=== PATIENT | male | born 2000 | race Caucasian/White ===

== ENCOUNTER 2020-02-03 01:31 | Emergency (ER) | payer BC, OTHER ==
[2020-02-03 01:41] VITALS: BP 150/95; PULSE 106
[2020-02-03] MEDS: Diphtheria,Pertussis(Acell),Tetanus Vaccine 0.5 ML SDV IM ONE (01:53)
--- NOTE | 2020-02-03 01:54 | EDM.PDOC ---
ED HPI GENERAL MEDICAL PROBLEM - General Chief Complaint: General Stated Complaint: Stepped on jaspal nail Time Seen by Provider: 02/03/20 01:49 Source of Information: Reports: Patient History Limitations: Reports: No Limitations - History of Present Illness INITIAL COMMENTS - FREE TEXT/NARRATIVE: Patient is a 19-year-old gentleman who presents to the emergency department this morning via private vehicle with a complaint of puncture wound to left foot. Patient states that he accidentally stepped on a jaspal nail at 6 p.m. yesterday. Patient states that he was wearing sneakers. Patient denies any other injury. Patient is not up to date with his tetanus. Onset: Gradual Onset Date: 02/02/20 Onset Time: 18:00 Duration: Hour(s): Location: Reports: Lower Extremity, Left Quality: Reports: Ache Severity: Mild Improves with: Reports: None Worsens with: Reports: Movement Context: Reports: Trauma (Stepped on nail) Associated Symptoms: Reports: No Other Symptoms Left Foot Pain Score (Numeric/FACES): 9 - Related Data Allergies Allergy/AdvReac Type Severity Reaction Status Date / Time No Known Drug Allergies Allergy Cannot Verified 02/03/20 01:32 Remember Home Meds: Home Meds cephALEXin [Keflex] 500 mg PO TID #21 capsule 02/03/20 [Rx] Past Medical History - Past Health History Medical/Surgical History: Denies Medical/Surgical History Other Dermatologic History: large weeping wound to left lower leg; MRSA - Infectious Disease History Infectious Disease History: Reports: MRSA Social & Family History - Tobacco Use Smoking Status *Q: Current Every Day Smoker Years of Tobacco use: 5 Packs/Tins Daily: 1.5 - Caffeine Use Caffeine Use: Reports: None - Recreational Drug Use Recreational Drug Use: No ED ROS GENERAL - Review of Systems Review Of Systems: Comprehensive ROS is negative, except as noted in HPI. Constitutional: Reports: No Symptoms HEENT: Reports: No Symptoms Respiratory: Reports: No Symptoms Cardiovascular: Reports: No Symptoms Endocrine: Reports: No Symptoms GI/Abdominal: Reports: No Symptoms : Reports: No Symptoms Musculoskeletal: Reports: Foot Pain (Left) Skin: Reports: Wound (Puncture wound to left foot) Neurological: Reports: No Symptoms Psychiatric: Reports: No Symptoms Hematologic/Lymphatic: Reports: No Symptoms Immunologic: Reports: No Symptoms ED EXAM, GENERAL - Physical Exam Exam: See Below Exam Limited By: No Limitations General Appearance: Alert, WD/WN, No Apparent Distress Throat/Mouth: Normal Inspection, Normal Oropharynx, No Airway Compromise Head: Atraumatic, Normocephalic Respiratory/Chest: No Respiratory Distress Extremities: Other (Left foot medial plantar surface puncture wound) Neurological: Alert, Oriented, Normal Cognition Psychiatric: Normal Affect, Normal Mood Skin Exam: Warm, Dry, Normal Color, No Rash, Wound/Incision (As above. Small puncture wound) Course - Vital Signs Last Recorded V/S: Last Vital Signs Temp 97.5 F 02/03/20 01:37 Pulse 106 H 02/03/20 01:37 Resp 18 02/03/20 01:37 BP 150/95 H 02/03/20 01:37 Pulse Ox 96 02/03/20 01:37 - Orders/Labs/Meds Orders: Active Orders 24 hr Category Date Time Status Vaccines to be Administered [RC] PER UNIT ROUTINE Care 02/03/20 01:45 Active Foot 2V Lt [CR] Stat Exams 02/03/20 01:37 Ordered Meds: Medications Discontinued Medications Generic Name Dose Route Start Last Admin Trade Name Freq PRN Reason Stop Dose Admin Diphtheria/Tetanus/Acell Pertussis 0.5 ml 02/03/20 01:45 Adacel IM 02/03/20 01:46 .ONCE ONE - Radiology Interpretation Free Text/Narrative:: Left foot x-ray shows no fracture or foreign body - Re-Assessments/Exams Free Text/Narrative Re-Assessment/Exam: 02/03/20 02:06 Patient afebrile, vital signs stable, tetanus given in ER, Keflex prescription submitted. Departure - Departure Time of Disposition: 02:09 Disposition: Home, Self-Care 01 Condition: Good Clinical Impression: Puncture wound of foot Qualifiers: Encounter type: initial encounter Laterality: left Qualified Code(s): S91.332A - Puncture wound without foreign body, left foot, initial encounter - Discharge Information Instructions: Puncture Wound, [id number] Additional Instructions: Follow-up with PCP. Take medication as directed. Keep foot clean and dry. Sepsis Event Note (ED) - Evaluation Sepsis Screening Result: No Definite Risk - Focused Exam Vital Signs: Vital Signs Temp Pulse Resp BP Pulse Ox 02/03/20 01:37 97.5 F 106 H 18 150/95 H 96 - My Orders Last 24 Hours: My Active Orders 02/03/20 01:37 Foot 2V Lt [CR] Stat 02/03/20 01:45 Vaccines to be Administered [RC] PER UNIT ROUTINE - Assessment/Plan Last 24 Hours: My Active Orders 02/03/20 01:37 Foot 2V Lt [CR] Stat 02/03/20 01:45 Vaccines to be Administered [RC] PER UNIT ROUTINE Assessment:: Puncture wound to left foot Plan: Follow-up with PCP
--- NOTE | 2020-02-03 07:23 | CR ---
[id number] RAD/RAD Foot Left 2V EXAM: RAD Foot Left 2V CLINICAL DATA: PENETRATING TRAUMA COMPARISON: NO PREVIOUS SIMILAR EXAM IS AVAILABLE. FINDINGS: No fracture or dislocation is seen. There is no radiopaque foreign body in the soft tissues. There is no air in the soft tissues. There is no cortical thickening or periosteal reaction either. IMPRESSION: NEGATIVE PLAIN FILM EXAM. Ran Thompson MD 02/03/20 0722 Thank you for allowing us to participate in the care of your patient.
== END 2020-02-03 02:15 | disposition home or self-care (01) ==
LOC: KA.ED 01:31
DX: S91.332A Puncture wound without foreign body, left foot, initial encounter (principal); Z23 Encounter for immunization; F17.200 Nicotine dependence, unspecified, uncomplicated; W45.0XXA Nail entering through skin, initial encounter
CPT/HCPCS: 73620-LT; 90471; 90715; 99283; 99283-25